=== PATIENT | female | born 1950 | race Native Hawaiian/Other Pacific Islander ===

== ENCOUNTER 2017-04-21 07:38 | Day surgery (SDC) | payer MEDICARE, OTHER ==
[2017-04-20 10:00] VITALS: BMI 28.5
[2017-04-21] MEDS ORDERED: Lactated Ringer's 500 ML IV ONE (11:05)
[2017-04-21] MEDS ORDERED: Lidocaine Hydrochloride 5 ML INJ ONE (11:09)
[2017-04-21] MEDS ORDERED: Propofol 10 mg/ml Inj (20 ML) ONE (11:09)
[2017-04-21] MEDS ORDERED: ePHEDrine 50 mg/ml Inj ONE (11:37)
[2017-04-21 12:06] VITALS: TEMP 97.8
[2017-04-21 12:46] VITALS: O2SAT 97
[2017-04-21 12:51] VITALS: BP 134/67; PULSE 61; RESP 16
== END 2017-04-21 12:50 | disposition home or self-care (01) ==
LOC: C.ENDO 07:38
PROVIDERS: ATTEND Internal Medicine Gastroenterology
DX: Z12.11 Encounter for screening for malignant neoplasm of colon (principal); D12.0 Benign neoplasm of cecum; K64.0 First degree hemorrhoids; K57.30 Diverticulosis of large intestine without perforation or abscess without bleeding; E11.9 Type 2 diabetes mellitus without complications; I10 Essential (primary) hypertension; E78.5 Hyperlipidemia, unspecified; I69.398 Other sequelae of cerebral infarction; R20.0 Anesthesia of skin; Z90.49 Acquired absence of other specified parts of digestive tract; Z79.02 Long term (current) use of antithrombotics/antiplatelets; Z79.84 Long term (current) use of oral hypoglycemic drugs; Z79.899 Other long term (current) drug therapy

== ENCOUNTER 2018-06-29 09:41 | Day surgery (SDC) | payer MEDICARE, OTHER ==
[2018-06-23 10:46] VITALS: BMI 28.7
[2018-06-29] MEDS ORDERED: Propofol 10 mg/ml Inj (20 ML) ONE (10:55)
[2018-06-29] MEDS ORDERED: Lactated Ringer's 1,000 ML IV ONE (10:58)
--- NOTE | 2018-06-29 10:59 | CP.SDSHP ---
Same Day Surgery H & P - History Proposed Procedure: colonoscopy Pre-Op Diagnosis: screening - Previous Medical/Surgical History Cardiac: Hypertension Endocrine/Metabolic: Diabetes Comments: CVA - Allergies Allergies: Allergies No Known Allergies Allergy (Verified 06/29/18 10:09) - Physical Exam General Appearance: NAD Vital Signs: Vital Signs 06/29/18 10:09 Temperature 98.4 F Pulse Rate 73 Respiratory 20 Rate Blood Pressure 171/78 H O2 Sat by Pulse 100 Oximetry Mental Status: Alert & Oriented x3 Neuro: WNL Heart: WNL Lungs: WNL GI: WNL - {Optional Preform as Required} Abdomen: WNL - Impression Pt. Evaluated Today:Candidate for Anesthesia & Procedure: Yes - Date & Time Date: 06/29/18 Time: 10:58 Short Stay Discharge - Short Stay Discharge Admitting Diagnosis/Reason for Visit: P/H COLONIC POLYPS Disposition: HOME/ ROUTINE Referrals: Francisca Haas MD [Primary Care Provider] -
[2018-06-29 12:08] VITALS: BP 153/74; PULSE 60; RESP 18; TEMP 97.4; O2SAT 99
== END 2018-06-29 12:15 | disposition home or self-care (01) ==
LOC: C.ENDO 09:41
PROVIDERS: ATTEND Internal Medicine Gastroenterology
DX: Z86.010 Personal history of colon polyps (principal); Z12.11 Encounter for screening for malignant neoplasm of colon; K57.90 Diverticulosis of intestine, part unspecified, without perforation or abscess without bleeding; K64.8 Other hemorrhoids
CPT/HCPCS: 45378; 82948; J2704; J7120